=== PATIENT | female | born 1990 | race African-American/Black ===

== ENCOUNTER 2016-06-08 09:10 | Emergency (ER) | payer MEDICAID ==
[~2016-06-08] VITALS: Ht 177.8 cm; Wt 158.8 kg
[2016-06-08 09:38] VITALS: BP_SYST 137
[2016-06-08] MEDS ORDERED: PROCHLORPERAZINE EDISYLATE 10 MG/2 ML VIAL IVP ONE (09:45)
[2016-06-08] MEDS ORDERED: DIPHENHYDRAMINE INJ 50 MG/ML VIAL IVP ONE (09:45)
[2016-06-08] MEDS ORDERED: NACL 0.9% 1,000 ML IV ONE (09:45)
[2016-06-08 11:35] VITALS: BP_SYST 130
== END 2016-06-08 11:35 | disposition home or self-care (01) ==
LOC: SED 09:10
DX: G43.909 Migraine, unspecified, not intractable, without status migrainosus (principal)
CPT/HCPCS: 96374; 96375; 99284; J0780; J1200; J7030

== ENCOUNTER 2016-06-16 18:26 | Emergency (ER) | payer MEDICAID ==
[~2016-06-16] VITALS: Ht 177.8 cm; Wt 158.8 kg
[2016-06-16 18:37] VITALS: BP 140/76; PULSE 118; RESP 20; TEMP 99.6; O2SAT 97
--- NOTE | 2016-06-16 18:44 | NUR ---
Pt placed to ER waiting room, steady gait, stable condition. Friend at side.
--- NOTE | 2016-06-16 20:15 | NUR ---
Pt ambulatory to bed 1 accompanied by family member. Report given to TESSIE Riggins.
--- NOTE | 2016-06-16 20:24 | NUR ---
Urine specimen sent to lab. Urine foul smelling and dark in color.
--- NOTE | 2016-06-16 20:25 | NUR ---
Pt states that she has been feeling weak and dizzy for two days. AAOx4. Friend stated she had a syncopal episode at 1600. Pt reports having a fever with 8/10 body aches with nausea. Will continue to monitor. No other injuries or complaints mentioned/noted. No distress noted.
--- NOTE | 2016-06-16 20:44 | NUR ---
Dr. Harris at bedside to examine pt and discuss plan of care. Pt current temp 101.2. notified.
--- NOTE | 2016-06-16 20:45 | NUR ---
Sepsis protocol reviewed with Dr. Harris. No change in orders at this time.
[2016-06-16] MEDS ORDERED: ACETAMINOPHEN 500 MG TABLET PO ONE (21:00)
[2016-06-16] MEDS ORDERED: KETOROLAC TROMETHAMINE 60 MG/2 ML VIAL IM ONE (21:00)
[2016-06-16] MEDS ORDERED: ACETAMINOPHEN 500 MG TABLET ONE (21:00)
[2016-06-16 21:26] VITALS: BP 132/49; PULSE 94; RESP 20; TEMP 99.3; O2SAT 97
--- NOTE | 2016-06-16 21:26 | NUR ---
Patient given written and verbal discharge instructions and verbalizes understanding. ER MD discussed with patient the results and treatment provided. Patient in stable condition. ID arm band removed. Rx of Azithromycin, promethazine/dextromethorphan, and tramadol given. Patient educated on pain management and to follow up with PMD. Pain Scale 4/10. Opportunity for questions provided and answered.
== END 2016-06-16 21:26 | disposition home or self-care (01) ==
LOC: SED 18:26
DX: J20.9 Acute bronchitis, unspecified (principal); G43.909 Migraine, unspecified, not intractable, without status migrainosus; R11.10 Vomiting, unspecified; F50.9 Eating disorder, unspecified; M25.50 Pain in unspecified joint; F17.210 Nicotine dependence, cigarettes, uncomplicated
CPT/HCPCS: 81025; 96372; 99283; J1885

== ENCOUNTER 2016-08-10 21:16 | Emergency (ER) | payer SELFPAY ==
[~2016-08-10] VITALS: Ht 180.3 cm; Wt 153.8 kg
[2016-08-10 21:20] VITALS: BP 140/86; PULSE 97; RESP 16; TEMP 98.2; O2SAT 98
[2016-08-10] MEDS ORDERED: KETOROLAC TROMETHAMINE 60 MG/2 ML VIAL IM ONE (21:45)
[2016-08-10] MEDS ORDERED: HYDROcodone/ACETAMIN 7.5-325 MG TAB PO ONE (22:45)
[2016-08-10 23:00] VITALS: BP 140/86; PULSE 74; RESP 16; TEMP 98.2; O2SAT 98
== END 2016-08-10 23:00 | disposition home or self-care (01) ==
LOC: SED 21:16
DX: S13.4XXA Sprain of ligaments of cervical spine, initial encounter (principal); G43.909 Migraine, unspecified, not intractable, without status migrainosus; V49.49XA Driver injured in collision with other motor vehicles in traffic accident, initial encounter; Y93.89 Activity, other specified; Y92.410 Unspecified street and highway as the place of occurrence of the external cause; Y99.8 Other external cause status
CPT/HCPCS: 72125; 72128; 81025; 96372; 99284; J1885

== ENCOUNTER 2017-03-04 20:14 | Emergency (ER) | payer MEDICAID ==
[~2017-03-04] VITALS: Ht 177.8 cm; Wt 141.5 kg
[2017-03-04 20:20] VITALS: BP_SYST 160
[2017-03-04] MEDS ORDERED: ASPIRIN 325 MG TABLET PO ONE (20:30)
[2017-03-04 21:14] LABS: BASOPHILS # (AUTO) 0.1 K/uL (0.0-0.2); BASOPHILS % (AUTO) 0.8 % (0.0-2.0); EOSINOPHILS # (AUTO) 0.3 K/uL (0.0-0.4); EOSINOPHILS % (AUTO) 2.8 % (0.0-4.0); HEMATOCRIT 37.8 % (36-48); LYMPHOCYTES # (AUTO) 3.3 K/uL (1.0-5.5); LYMPHOCYTES % (AUTO) 35.4 % (20.5-51.5); MEAN CORPUSCULAR HEMOGLOBIN 29 pg (27-31); MEAN CORPUSCULAR HGB CONC 32 % (32-36); MEAN CORPUSCULAR VOLUME 91 fL (79.0-98.0); MONOCYTES # (AUTO) 0.7 K/uL (0.0-1.0); MONOCYTES % (AUTO) 7.5 % (1.7-9.3); NEUTROPHILS # (AUTO) 4.8 K/uL (1.8-7.7); NEUTROPHILS % (AUTO) 53.5 % (40.0-70.0); PLATELET COUNT (AUTO) 237 K/uL (130-430); RED BLOOD CELL COUNT(AUTO) 4.15 MIL/uL (4.2-6.2); RED CELL DISTRIBUTION WIDTH 12.1 % (9.0-15.0); WHITE BLOOD COUNT (AUTO) 9.2 K/uL (4.8-10.8)
[2017-03-04 21:22] LABS: CREATININE 1.05 mg/dL (0.55-1.30); POTASSIUM 3.8 mmol/L (3.5-5.1)
[2017-03-04 21:26] LABS: ALBUMIN 3.4 g/dL (3.4-4.8); TOTAL BILIRUBIN 0.2 mg/dL (0.0-1.0)
[2017-03-04] MEDS ORDERED: KETOROLAC TROMETHAMINE 30 MG VIAL IM ONE (21:45)
[2017-03-04 22:55] VITALS: BP_SYST 138
== END 2017-03-04 22:55 | disposition home or self-care (01) ==
LOC: SED 20:14
DX: R07.89 Other chest pain (principal); G43.909 Migraine, unspecified, not intractable, without status migrainosus
CPT/HCPCS: 36415; 71010; 80053; 83880; 84484; 85025; 93005; 96372; 99285; J1885

== ENCOUNTER 2017-03-16 21:53 | Emergency (ER) | payer MEDICAID ==
[~2017-03-16] VITALS: Ht 177.8 cm; Wt 141.5 kg
[2017-03-16 21:54] VITALS: BP_SYST 154
[2017-03-17 00:37] VITALS: BP_SYST 154
== END 2017-03-17 00:37 | disposition home or self-care (01) ==
LOC: SED 21:53
DX: B34.9 Viral infection, unspecified (principal); G43.909 Migraine, unspecified, not intractable, without status migrainosus
CPT/HCPCS: 71010; 93005; 99284

== ENCOUNTER 2017-05-12 21:09 | Emergency (ER) | payer MEDICAID ==
[~2017-05-12] VITALS: Ht 177.8 cm; Wt 136.1 kg
[2017-05-12 21:15] VITALS: BP_SYST 139
[2017-05-12 21:41] LABS: BILIRUBIN,URINE NEGATIVE (NEGATIVE); BLOOD, URINE NEGATIVE (NEGATIVE); CLARITY/URINE CLEAR (CLEAR); COLOR,URINE YELLOW (YELLOW); GLUCOSE,URINE NEGATIVE (NEGATIVE); KETONES,URINE TRACE (NEGATIVE); LEUKOCYTE ESTERASE ,URINE NEGATIVE (NEGATIVE); NITRITE, URINE NEGATIVE (NEGATIVE); PH,URINE 5.5 (5.0-8.0); PROTEIN URINE NEGATIVE (NEGATIVE); UROBILINOGEN,URINE 0.2 (0.2-1.0)
[2017-05-12 21:46] LABS: BACTERIA,URINE FEW /HPF (None Seen); RBC,URINE 0-3 /HPF (0-3); WBC,URINE 0-3 /HPF (0-3)
[2017-05-12] MEDS ORDERED: KETOROLAC TROMETHAMINE 60 MG/2 ML VIAL IM ONE (23:15)
[2017-05-12 23:17] VITALS: BP_SYST 135
== END 2017-05-12 23:17 | disposition home or self-care (01) ==
LOC: SED 21:09
DX: M54.9 Dorsalgia, unspecified (principal); R03.0 Elevated blood-pressure reading, without diagnosis of hypertension; R05 Cough; R11.0 Nausea; G43.909 Migraine, unspecified, not intractable, without status migrainosus
CPT/HCPCS: 36415; 72072-TC; 72100-TC; 81000-TC; 81025; 86710; 99285

== ENCOUNTER 2017-06-30 21:05 | Emergency (ER) | payer MEDICAID ==
[~2017-06-30] VITALS: Ht 177.8 cm; Wt 113.4 kg
[2017-06-30 21:05] VITALS: BP_SYST 146
[2017-06-30] MEDS ORDERED: IPRATROPIUM BROM 0.5 MG/2.5 ML VIAL.NEB (ATROVENT) IH ONE (21:15)
[2017-06-30] MEDS ORDERED: methylPREDNISolone SOD SUCC/PF 62.5 MG/ML VIAL IVP ONE (21:15)
[2017-06-30] MEDS ORDERED: NACL 0.9% 1,000 ML IV ONE (21:15)
[2017-06-30] MEDS ORDERED: ALBUTEROL SULFATE 0.083% 2.5 MG/3 ML VIAL.NEB IH ONE (21:15)
[2017-06-30] MEDS ORDERED: DIPHENHYDRAMINE INJ 50 MG/ML VIAL IVP ONE (21:30)
[2017-06-30 21:36] LABS: BASOPHILS # (AUTO) 0.1 K/uL (0.0-0.2); BASOPHILS % (AUTO) 0.8 % (0.0-2.0); EOSINOPHILS # (AUTO) 0.2 K/uL (0.0-0.4); EOSINOPHILS % (AUTO) 2.2 % (0.0-4.0); HEMATOCRIT 39.6 % (36-48); HEMOGLOBIN 13.3 g/dL (12.0-16.0); LYMPHOCYTES # (AUTO) 3.2 K/uL (1.0-5.5); LYMPHOCYTES % (AUTO) 30.4 % (20.5-51.5); MEAN CORPUSCULAR HEMOGLOBIN 31 pg (27-31); MEAN CORPUSCULAR HGB CONC 34 % (32-36); MEAN CORPUSCULAR VOLUME 92 fL (79.0-98.0); MONOCYTES # (AUTO) 0.7 K/uL (0.0-1.0); MONOCYTES % (AUTO) 6.5 % (1.7-9.3); NEUTROPHILS # (AUTO) 6.5 K/uL (1.8-7.7); NEUTROPHILS % (AUTO) 60.1 % (40.0-70.0); PLATELET COUNT (AUTO) 261 K/uL (130-430); RED BLOOD CELL COUNT(AUTO) 4.33 MIL/uL (4.2-6.2); RED CELL DISTRIBUTION WIDTH 12.8 % (9.0-15.0); WHITE BLOOD COUNT (AUTO) 10.7 K/uL (4.8-10.8)
[2017-06-30 21:50] LABS: CALCIUM 9.2 mg/dL (8.4-11.0); CREATININE 1.08 mg/dL (0.55-1.30); POTASSIUM 4.1 mmol/L (3.5-5.1)
[2017-06-30 21:58] LABS: BILIRUBIN,URINE NEGATIVE (NEGATIVE); BLOOD, URINE NEGATIVE (NEGATIVE); CLARITY/URINE SL HAZY (CLEAR); COLOR,URINE YELLOW (YELLOW); GLUCOSE,URINE NEGATIVE (NEGATIVE); KETONES,URINE NEGATIVE (NEGATIVE); LEUKOCYTE ESTERASE ,URINE NEGATIVE (NEGATIVE); NITRITE, URINE NEGATIVE (NEGATIVE); PH,URINE 5.5 (5.0-8.0); PROTEIN URINE NEGATIVE (NEGATIVE); UROBILINOGEN,URINE 0.2 (0.2-1.0)
[2017-06-30 22:07] LABS: ALBUMIN 3.5 g/dL (3.4-4.8); TOTAL BILIRUBIN 0.2 mg/dL (0.0-1.0)
[2017-06-30] MEDS ORDERED: LIDOCAINE VISCOUS 2%, 15 ML UDC MM ONE (22:15)
[2017-06-30 22:16] LABS: BACTERIA,URINE MODERATE /HPF (None Seen); RBC,URINE 0-3 /HPF (0-3)
[2017-06-30 22:17] LABS: MUCUS,URINE 1+ /LPF (None Seen)
[2017-06-30 22:48] VITALS: BP_SYST 146
== END 2017-06-30 22:48 | disposition home or self-care (01) ==
LOC: SED 21:05
DX: T78.1XXA Other adverse food reactions, not elsewhere classified, initial encounter (principal); R05 Cough; R03.0 Elevated blood-pressure reading, without diagnosis of hypertension; G43.909 Migraine, unspecified, not intractable, without status migrainosus; X58.XXXA Exposure to other specified factors, initial encounter
CPT/HCPCS: 36415; 80053; 81000; 85025; 86403; 87081; 87086; 94640; 96361; 96374; 96375; 99284; J1200; J2001; J2930; J7030

== ENCOUNTER 2019-05-27 18:45 | Emergency (ER) | payer MEDICAID ==
[~2019-05-27] VITALS: Ht 177.8 cm; Wt 158.8 kg
[2019-05-27 18:50] VITALS: BP_SYST 130
--- NOTE | 2019-05-27 18:50 | NUR ---
BROUGHT BACK TO BED #7 AND TRIAGDED. REPORT GIVEN TO [facility]SPREAD CUTTER ER STAFF
--- NOTE | 2019-05-27 19:06 | NUR ---
Lab at bedside.
--- NOTE | 2019-05-27 19:15 | NUR ---
Pt report received. Pt c/o lower abdominal pain, bilat flank pain with urinary hesistancy x 4 days. Pt denies c/o N/V/D, denies burning urinations.
[2019-05-27 19:24] LABS: BASOPHILS # (AUTO) 0.1 K/uL (0.0-0.2); BASOPHILS % (AUTO) 0.6 % (0.0-2.0); EOSINOPHILS # (AUTO) 0.3 K/uL (0.0-0.4); EOSINOPHILS % (AUTO) 2.6 % (0.0-4.0); HEMATOCRIT 42.2 % (36-48); LYMPHOCYTES # (AUTO) 2.9 K/uL (1.0-5.5); LYMPHOCYTES % (AUTO) 26.6 % (20.5-51.5); MEAN CORPUSCULAR HEMOGLOBIN 30 pg (27-31); MEAN CORPUSCULAR HGB CONC 33 % (32-36); MEAN CORPUSCULAR VOLUME 91 fL (79.0-98.0); MONOCYTES # (AUTO) 0.9 K/uL (0.0-1.0); MONOCYTES % (AUTO) 7.9 % (1.7-9.3); NEUTROPHILS # (AUTO) 6.8 K/uL (1.8-7.7); NEUTROPHILS % (AUTO) 62.3 % (40.0-70.0); PLATELET COUNT (AUTO) 271 K/uL (130-430); RED BLOOD CELL COUNT(AUTO) 4.61 MIL/uL (4.2-6.2); RED CELL DISTRIBUTION WIDTH 13.8 % (9.0-15.0); WHITE BLOOD COUNT (AUTO) 10.9 K/uL (4.8-10.8)
[2019-05-27 19:40] LABS: CALCIUM 8.8 mg/dL (8.4-11.0); CREATININE 0.97 mg/dL (0.55-1.30); POTASSIUM 4.1 mmol/L (3.5-5.1)
[2019-05-27 19:46] LABS: ALBUMIN 3.2 g/dL (3.4-4.8); TOTAL BILIRUBIN 0.4 mg/dL (0.0-1.0)
--- NOTE | 2019-05-27 19:55 | NUR ---
Dr. Grande at bedside.
[2019-05-27 19:56] LABS: PROTHROMBIN TIME 9.9 SECS (9.5-12.5)
--- NOTE | 2019-05-27 20:00 | NUR ---
Pt c/o Bilat flank pain 11/04. Dr. Grande notified.
--- NOTE | 2019-05-27 21:00 | NUR ---
Pt continues to c/o pain. Dr. Grande made aware.
--- NOTE | 2019-05-27 21:18 | NUR ---
Lab at bedside to draw second lactic acid.
[2019-05-27] MEDS ORDERED: cefTRIAXone 1 GM in LIDOCAINE 1%, 20 ML MDV 2.1 ML IM ONE (22:15)
[2019-05-27] MEDS ORDERED: HYDROcodone/ACETAMIN 5-325 MG TAB (NORCO/ VICODIN) PO ONE (22:30)
--- NOTE | 2019-05-27 23:25 | NUR ---
Attempted to discharge pt. Pt and friend both demand my name and the name of the physician stating that pt was never medicated for her pain until now. Informed pt that Physician was made aware at time of request. Dr. Grande at bedside to see pt.
[2019-05-27 23:45] VITALS: BP_SYST 128
--- NOTE | 2019-05-27 23:45 | NUR ---
Patient given written and verbal discharge instructions and verbalizes understanding. ER MD discussed with patient the results and treatment provided. Patient in stable condition. ID arm band removed. Rx of Keflex given. Patient educated on pain management and to follow up with PMD. Pain Scale 9/10, medicated prior to discharge. Opportunity for questions provided and answered. Medication side effect fact sheet provided.
== END 2019-05-27 23:45 | disposition home or self-care (01) ==
LOC: SED 18:45
DX: N39.0 Urinary tract infection, site not specified (principal); G43.909 Migraine, unspecified, not intractable, without status migrainosus
CPT/HCPCS: 36415; 80053; 81002; 81025; 82150; 83605; 83690; 84703; 85025; 85610; 85730; 96372; 99283; J0696; J2001

== ENCOUNTER 2022-06-24 16:18 | Emergency (ER) | payer MEDICAID ==
[~2022-06-24] VITALS: Ht 177.8 cm; Wt 181.4 kg
--- NOTE | 2022-06-24 16:20 | NUR ---
Pt brought by self, A&Ox4, pt presents to ER with chest pressure and high blood pressure, also c/o SOB with exertion, O2 99%, skin pink and warm, cap refill <3, VSS, will cont to monitor.
[2022-06-24 16:24] VITALS: BP_SYST 190
[2022-06-24 18:07] LABS: BASOPHILS % (AUTO) 0.6 % (0.0-2.0); EOSINOPHILS # (AUTO) 0.1 K/uL (0.0-0.4); EOSINOPHILS % (AUTO) 1.5 % (0.0-4.0); HEMOGLOBIN 14.1 g/dL (12.0-16.0); LYMPHOCYTES # (AUTO) 1.8 K/uL (1.0-5.5); MEAN CORPUSCULAR HEMOGLOBIN 31 pg (27-31); MEAN CORPUSCULAR HGB CONC 34 % (32-36); MEAN CORPUSCULAR VOLUME 91 fL (79.0-98.0); MONOCYTES # (AUTO) 0.7 K/uL (0.0-1.0); MONOCYTES % (AUTO) 8.9 % (1.7-9.3); NEUTROPHILS # (AUTO) 5.1 K/uL (1.8-7.7); PLATELET COUNT (AUTO) 209 K/uL (130-430); RED BLOOD CELL COUNT(AUTO) 4.53 MIL/uL (4.2-6.2); RED CELL DISTRIBUTION WIDTH 13.9 % (9.0-15.0); WHITE BLOOD COUNT (AUTO) 7.7 K/uL (4.8-10.8)
[2022-06-24 18:08] LABS: BILIRUBIN,URINE NEGATIVE (NEGATIVE); BLOOD, URINE NEGATIVE (NEGATIVE); CLARITY/URINE CLEAR (CLEAR); COLOR,URINE YELLOW (YELLOW); GLUCOSE,URINE NEGATIVE (NEGATIVE); KETONES,URINE NEGATIVE (NEGATIVE); LEUKOCYTE ESTERASE ,URINE NEGATIVE (NEGATIVE); NITRITE, URINE NEGATIVE (NEGATIVE); PH,URINE 6.5 (5.0-8.0); PROTEIN URINE NEGATIVE (NEGATIVE); UROBILINOGEN,URINE 0.2 (0.2-1.0)
[2022-06-24 18:21] LABS: PROTHROMBIN TIME 10.4 SECS (9.5-12.5)
[2022-06-24 18:23] LABS: CALCIUM 8.8 mg/dL (8.4-11.0); CREATININE 0.93 mg/dL (0.55-1.30)
[2022-06-24 18:27] LABS: ALBUMIN 3.4 g/dL (3.4-4.8); TOTAL BILIRUBIN 0.4 mg/dL (0.0-1.0)
--- NOTE | 2022-06-24 20:48 | NUR ---
Placed in room 3 . Placed on quality assurance monitor final, blood pressure machine and pulse oximeter. To gown for exam. Side rails up. Report given to MELANIE KURTZ(REG).
[2022-06-24] MEDS ORDERED: cloNIDine HCL 0.1 MG TABLET PO ONE (21:15)
--- NOTE | 2022-06-24 21:52 | NUR ---
pt on the monitor. pt c/o chest pain today. pt denies nv
[2022-06-24] MEDS ORDERED: LABETALOL HCL 20 MG/4 ML CARTRIDGE IVP ONE (22:15)
[2022-06-24 23:05] VITALS: BP_SYST 131
--- NOTE | 2022-06-24 23:29 | NUR ---
pt feels better bp is normal
== END 2022-06-24 23:30 | disposition home or self-care (01) ==
LOC: SED 16:18
DX: I16.9 Hypertensive crisis, unspecified (principal); R07.89 Other chest pain; R53.1 Weakness; R51.9 Headache, unspecified; I10 Essential (primary) hypertension; Z79.899 Other long term (current) drug therapy
CPT/HCPCS: 36415; 70450-TC; 71045; 76376; 80053; 81003; 83880; 84484; 85025; 85610-TC; 96374; 99285

== ENCOUNTER 2023-03-25 18:46 | Emergency (ER) | payer OTHER, MEDICAID ==
[~2023-03-25] VITALS: Ht 157.5 cm; Wt 179.2 kg
[2023-03-25 19:21] VITALS: BP_SYST 159; PULSE 90; RESP 16; TEMP 97.4; O2SAT 96
[2023-03-25] MEDS ORDERED: SOM350 PO (21:39)
[2023-03-25] MEDS ORDERED: IBUP-1971 PO (21:39)
[2023-03-25 21:50] VITALS: BP_SYST 149; PULSE 89; RESP 16; TEMP 97.4; O2SAT 100
== END 2023-03-25 21:50 | disposition home or self-care (01) ==
LOC: SED 18:46
DX: S13.4XXA Sprain of ligaments of cervical spine, initial encounter (principal); S33.5XXA Sprain of ligaments of lumbar spine, initial encounter; Z79.899 Other long term (current) drug therapy; V89.2XXA Person injured in unspecified motor-vehicle accident, traffic, initial encounter; Y93.89 Activity, other specified; Y92.89 Other specified places as the place of occurrence of the external cause; Y99.8 Other external cause status
CPT/HCPCS: 72040-TC; 72100-TC; 99284

== ENCOUNTER 2023-07-29 14:14 | Emergency (ER) | payer MEDICAID, OTHER ==
[~2023-07-29] VITALS: Ht 177.8 cm; Wt 181.4 kg
[~2023-07-29 14:14] MED LIST: IBUP-1971 PO; SOM350 PO
[2023-07-29 14:22] VITALS: BP_SYST 165; PULSE 97; RESP 18; TEMP 98.4; O2SAT 94
[2023-07-29 16:16] LABS: BASOPHILS % (AUTO) 0.3 % (0.0-2.0); EOSINOPHILS # (AUTO) 0.3 K/uL (0.0-0.4); EOSINOPHILS % (AUTO) 3.5 % (0.0-4.0); HEMATOCRIT 36.7 % (36-48); HEMOGLOBIN 12.4 g/dL (12.0-16.0); MEAN CORPUSCULAR HEMOGLOBIN 30 pg (27-31); MEAN CORPUSCULAR HGB CONC 34 % (32-36); MEAN CORPUSCULAR VOLUME 89 fL (79.0-98.0); MONOCYTES # (AUTO) 0.8 K/uL (0.0-1.0); MONOCYTES % (AUTO) 8.5 % (1.7-9.3); NEUTROPHILS % (AUTO) 65.7 % (40.0-70.0); PLATELET COUNT (AUTO) 240 K/uL (130-430); RED BLOOD CELL COUNT(AUTO) 4.14 MIL/uL (4.2-6.2); RED CELL DISTRIBUTION WIDTH 14.4 % (9.0-15.0); WHITE BLOOD COUNT (AUTO) 9.2 K/uL (4.8-10.8)
[2023-07-29 16:22] LABS: CALCIUM 8.4 mg/dL (8.4-11.0); CREATININE 0.93 mg/dL (0.55-1.30); POTASSIUM 4.2 mmol/L (3.5-5.1)
[2023-07-29 18:50] LABS: BILIRUBIN,URINE NEGATIVE (NEGATIVE); BLOOD, URINE NEGATIVE (NEGATIVE); CLARITY/URINE SL CLOUDY (CLEAR); COLOR,URINE YELLOW (YELLOW); GLUCOSE,URINE NEGATIVE (NEGATIVE); KETONES,URINE NEGATIVE (NEGATIVE); LEUKOCYTE ESTERASE ,URINE NEGATIVE (NEGATIVE); NITRITE, URINE NEGATIVE (NEGATIVE); PROTEIN URINE NEGATIVE (NEGATIVE); UROBILINOGEN,URINE 0.2 (0.2-1.0)
[2023-07-29] MEDS ORDERED: IBUP-1971 PO (19:03)
[2023-07-29] MEDS ORDERED: HYDR-3917 PO (19:03)
[2023-07-29] MEDS: KETOROLAC TROMETHAMINE 60 MG/2 ML VIAL IM ONE (19:30)
[2023-07-29 19:58] VITALS: BP_SYST 142; PULSE 86; RESP 18; TEMP 97.4; O2SAT 96
== END 2023-07-29 19:58 | disposition home or self-care (01) ==
LOC: SED 14:14
DX: R10.9 Unspecified abdominal pain (principal); M79.10 Myalgia, unspecified site; Z79.899 Other long term (current) drug therapy
CPT/HCPCS: 99283; 80048; 81001; 85025; 36415; 81025; 96372; 81003; J1885